=== PATIENT | female | born 1990 | race Caucasian/White ===

== ENCOUNTER 2021-03-19 17:46 | Emergency (ER) | payer BC, OTHER ==
[2021-03-19 18:01] VITALS: BP 133/79; PULSE 74; TEMP 98.8; BMI 19.0
[2021-03-19] MEDS ORDERED: DIPHTH,PERTUSS(ACELL),TET 0.5 ML DISP.SYRIN IM ONE ×2 (18:23→18:32)
[2021-03-19] MEDS ORDERED: NAPROXEN 375 MG TABLET PO ONE (18:23)
[2021-03-19] MEDS ORDERED: NAPROXEN 375 MG TABLET ONE (18:31)
== END 2021-03-19 18:58 | disposition home or self-care (01) ==
LOC: FER 17:46
PROC: 3E0234Z Introduction of Serum, Toxoid and Vaccine into Muscle, Percutaneous Approach (ICD-10-PCS; principal; 2021-03-19)
DX: S91.311A Laceration without foreign body, right foot, initial encounter (principal); W26.9XXA Contact with unspecified sharp object(s), initial encounter
CPT/HCPCS: 90471; 90715; 99284-25